=== PATIENT | female | born 1970 | race Caucasian/White ===

== ENCOUNTER 2020-07-20 06:31 | Outpatient (REF) | payer OTHER, SELFPAY ==
[2020-07-20 07:22] LABS: Alanine Aminotransferase 12 U/L (0-31); Albumin Level 3.8 g/dL (3.5-5.0); Alkaline Phosphatase 80 U/L (39-117); Anion Gap 10 (12-20); Aspartate Amino Transferase 10 U/L (5-31); Bilirubin Total 0.4 mg/dL (0.0-1.0); Blood Urea Nitrogen 14 mg/dL (9-16); Calcium 8.8 mg/dL (8.4-10.2); Carbon Dioxide 29 mmol/L (22-29); Chloride 105 mmol/L (96-108); Cholesterol 160 mg/dL; Estimated Glomerular Filt Rate > 60; Glucose Random 160 mg/dL (60-115); HDL Cholesterol 54 mg/dL; LDL Cholesterol Calculated 91 mg/dl; Sodium 140 mmol/L (135-145); Total Protein 6.1 g/dL (6.5-8.0); Triglycerides 75 mg/dL
[2020-07-20 07:37] LABS: Estimated Average Glucose 180 mg/dL; Hemoglobin A1c % 7.9 %
[2020-07-20 09:13] LABS: Creatinine Urine 42.12 mg/dL; Microalbum/Creatinine Ratio Ur 11.8 ug/mg cr
== END 2020-07-20 06:32 | disposition home or self-care (01) ==
LOC: HO.LAB 06:31
PROVIDERS: PCP Internal Medicine; Visit Provider Internal Medicine
DX: E11.9 Type 2 diabetes mellitus without complications (principal)
CPT/HCPCS: 80053; 80061; 82043; 83036

== ENCOUNTER → 2020-10-28 09:03 | Outpatient (BNVA) | payer OTHER, SELFPAY | PROVIDERS: PCP Internal Medicine; Visit Provider Orthopaedic Surgery ==

== ENCOUNTER 2020-10-29 11:04 | Day surgery (SDC) | payer OTHER, SELFPAY ==
[2020-10-29 12:30] VITALS: BMI 25.8
[2020-10-29 12:44] VITALS: BP 147/80; PULSE 95; RESP 18; TEMP 36.9; O2SAT 100
[2020-10-29] MEDS: Lactated Ringers 1,000 ML 20 ML IVCONT (13:15)
--- NOTE | 2020-10-29 13:20 | P.CONAN_ITS ---
FORMERLY [facility] Social History Social History Smoking Status: Current some day smoker Use of substances other than those prescribed or required for medical reasons: No Advance Directives: Yes Advance Directives Information Provided: No Advance Directives on File: No Advance Directives Date on File: 10/29/20 Meds Allergies Allergy/AdvReac Type Severity Reaction Status Date / Time ciprofloxacin [From Cipro] Allergy Mild RASH Unverified 06/17/20 15:53 Iodinated Contrast Media Allergy Mild TACHYCARDIA, Unverified 06/17/20 15:53 [IV Dye, Iodine Containing] RASH povidone-iodine Allergy Mild RASH Unverified 06/17/20 15:53 [From Betadine] bee pollen [BEE STINGS] Allergy Unknown ANAPHYLAXIS Unverified 06/17/20 15:53 dulaglutide [Trulicity] Allergy Unknown Rash Verified 10/29/20 12:29 Shellfish Allergy Mild RASH Uncoded 06/17/20 15:53 Home Medications Medication Instructions Recorded Confirmed Type glimepiride 1 tab PO BID 10/29/20 10/29/20 History imipramine HCl 1 tab PO BID 10/29/20 10/29/20 History insulin glargine [Lantus U-100 30 unit SUBCUT BEDTIME 10/29/20 10/29/20 History Insulin] insulin lispro [Humalog U-100 5 unit SUBCUT TID 10/29/20 10/29/20 History Insulin] lisinopril-hydrochlorothiazide 2 tab PO DAILY 10/29/20 10/29/20 History metformin 1 tab PO BEDTIME 10/29/20 10/29/20 History metoprolol tartrate 1 tab PO BID 10/29/20 10/29/20 History simvastatin 1 tab PO BEDTIME 10/29/20 10/29/20 History Exam Exam Date and Time: October 29, 2020 1320 Height,Weight and Vital Signs: Height 5 ft 6 in Weight 72.575 kg Last Vital Signs Temp 98.4 F 10/29/20 12:44 Pulse 95 10/29/20 12:44 Resp 18 10/29/20 12:44 BP 147/80 H 10/29/20 12:44 Pulse Ox 100 10/29/20 12:44 Airway Mallampati Class: II TM Dist: >3cm Neck ROM: Full Assessment and Plan Assessment Anesthesia Assessment: Anesthesia Plan Discussed and Chart Reviewed Final Anesthetic Review NPO: Yes ASA Class: II Final Preanesthetic Review: No Changes in Pt Med Stat, Meds/Allgs Chart Reviewed, Consent Obtained/Reviewed and Anes Risks/Benef Reviewed Patient Risk: Low Procedure Risk: Low Assessment/Block/Sedation in SS: Assess/Block/Sedation-SS Anesthetic Plan Anesthetic Plan: MAC: Disposition: Standard PACU
--- NOTE | 2020-10-29 13:56 | HO.ANESPROP2 ---
[facility] Social History Social History Smoking Status: Current some day smoker Use of substances other than those prescribed or required for medical reasons: No Advance Directives: Yes Advance Directives Information Provided: No Advance Directives on File: No Advance Directives Date on File: 10/29/20 Meds Allergies Allergy/AdvReac Type Severity Reaction Status Date / Time ciprofloxacin [From Cipro] Allergy Mild RASH Verified 10/29/20 13:23 Iodinated Contrast Media Allergy Mild TACHYCARDIA, Verified 10/29/20 13:23 [IV Dye, Iodine Containing] RASH povidone-iodine Allergy Mild RASH Verified 10/29/20 13:23 [From Betadine] bee pollen [BEE STINGS] Allergy Unknown ANAPHYLAXIS Verified 10/29/20 13:23 dulaglutide [Trulicity] Allergy Unknown Rash Verified 10/29/20 13:23 Shellfish Allergy Mild RASH Uncoded 06/17/20 15:53 Home Medications Medication Instructions Recorded Confirmed Type glimepiride 1 tab PO BID 10/29/20 10/29/20 History imipramine HCl 1 tab PO BID 10/29/20 10/29/20 History insulin glargine [Lantus U-100 30 unit SUBCUT BEDTIME 10/29/20 10/29/20 History Insulin] insulin lispro [Humalog U-100 5 unit SUBCUT TID 10/29/20 10/29/20 History Insulin] lisinopril-hydrochlorothiazide 2 tab PO DAILY 10/29/20 10/29/20 History metformin 1 tab PO BEDTIME 10/29/20 10/29/20 History metoprolol tartrate 1 tab PO BID 10/29/20 10/29/20 History simvastatin 1 tab PO BEDTIME 10/29/20 10/29/20 History Exam Exam Date and Time: October 29, 2020 1356 Height,Weight and Vital Signs: Height 5 ft 6 in Weight 72.575 kg Last Vital Signs Temp 98.4 F 10/29/20 12:44 Pulse 95 10/29/20 12:44 Resp 18 10/29/20 12:44 BP 147/80 H 10/29/20 12:44 Pulse Ox 100 10/29/20 12:44 Airway Mallampati Class: II TM Dist: >3cm Neck ROM: Full Assessment and Plan Assessment Anesthesia Assessment: Anesthesia Plan Discussed and Chart Reviewed Final Anesthetic Review NPO: Yes ASA Class: II Final Preanesthetic Review: No Changes in Pt Med Stat, Meds/Allgs Chart Reviewed, Consent Obtained/Reviewed and Anes Risks/Benef Reviewed Patient Risk: Low Procedure Risk: Low Assessment/Block/Sedation in SS: Assess/Block/Sedation-SS Anesthetic Plan Anesthetic Plan: MAC: Disposition: Standard PACU
[2020-10-29 14:10] VITALS: BP 117/70; PULSE 82; RESP 16; TEMP 36.3; O2SAT 97
--- NOTE | 2020-10-29 14:22 | PM.OP ---
Brief Operative Note Date of Service: 10/29/20 Pre-op diagnosis: right trigger thumb Post-op diagnosis: same Procedure: right trigger thumb release Implants: none Surgeon: Ez Paredes MD Anesthesia: MAC and local Estimated blood loss (mL): 0 Tourniquet time (min): 11 IV fluids (mL): 200 Pathology: none sent Condition: stable Disposition: PACU
[2020-10-29 14:25] VITALS: BP 128/75; PULSE 973; RESP 17; O2SAT 100
--- NOTE | 2020-11-02 15:39 | OP_ITS ---
SURGEON: Ez Paredes MD INDICATIONS: A 50-year-old with a long trigger thumb, consented to undergo trigger thumb release. PREOPERATIVE DIAGNOSIS: Right trigger thumb. POSTOPERATIVE DIAGNOSIS: Right trigger thumb. PROCEDURE PERFORMED: Right trigger thumb release. ESTIMATED BLOOD LOSS: None. COMPLICATIONS: ANESTHESIA: MAC plus local. ASSISTANTS: SPECIMENS: TOURNIQUET TIME: 11 minutes. FLUIDS: 200. PROCEDURE IN DETAIL: The patient was brought to the operative room, placed supine on the hand table and prepped and draped in standard sterile fashion. Time-out was called to identify proper site, proper procedure, and proper surgeon. IV antibiotics per weight were not administered. I began by insufflating tourniquet to 350 mmHg. Then I injected approximately 7 mL of 1% lidocaine over the proximal thumb crease. Longitudinal dissection was taken down to the A1 matthias and this was incised with Littler scissors proximally and distally until the underlying flexor tendon was completely freed. At this point, she had full range of motion of the thumb. I then closed with skin glue and injected an additional 5 mL of 0.25% Marcaine plain. Tourniquet was then let down after sterile dressings were applied. She was awakened from sedation, brought to recovery room in stable condition. There were no known complications. SPOILAGE WORKER: None. MD NAVA Fall/GRIS / [id number]
== END 2020-10-29 14:36 | disposition home or self-care (01) ==
PROVIDERS: PCP Internal Medicine; Visit Provider Orthopaedic Surgery
PROC: (CPT 26055; principal; 2020-10-29 13:00)
DX: M65.311 Trigger thumb, right thumb (principal); F17.210 Nicotine dependence, cigarettes, uncomplicated; E11.9 Type 2 diabetes mellitus without complications; Z79.4 Long term (current) use of insulin; Z79.899 Other long term (current) drug therapy; Z88.1 Allergy status to other antibiotic agents; Z91.041 Radiographic dye allergy status; Z91.09 Other allergy status, other than to drugs and biological substances
CPT/HCPCS: 26055; J2405

== ENCOUNTER 2021-02-16 06:22 | Outpatient (REF) | payer OTHER, SELFPAY ==
[2021-02-16 07:44] LABS: Estimated Average Glucose 169 mg/dL; Hemoglobin A1c % 7.5 %
[2021-02-16 08:06] LABS: Alanine Aminotransferase 16 U/L (0-31); Albumin Level 3.7 g/dL (3.5-5.0); Alkaline Phosphatase 83 U/L (39-117); Anion Gap 10 (12-20); Aspartate Amino Transferase 12 U/L (5-31); Bilirubin Total 0.2 mg/dL (0.0-1.0); Blood Urea Nitrogen 13 mg/dL (9-16); Calcium 8.9 mg/dL (8.4-10.2); Carbon Dioxide 29 mmol/L (22-29); Chloride 105 mmol/L (96-108); Cholesterol 153 mg/dL; Estimated Glomerular Filt Rate > 60; Glucose Random 146 mg/dL (60-115); HDL Cholesterol 53 mg/dL; LDL Cholesterol Calculated 87 mg/dl; Potassium 4.6 mmol/L (3.3-5.1); Sodium 139 mmol/L (135-145); Total Protein 5.9 g/dL (6.5-8.0); Triglycerides 66 mg/dL
[2021-02-16 08:07] LABS: Creatinine Urine 21.99 mg/dL; Microalbum/Creatinine Ratio Ur 22.7 ug/mg cr
== END 2021-02-16 06:23 | disposition home or self-care (01) ==
LOC: HO.LAB 06:22
PROVIDERS: PCP Internal Medicine; Visit Provider Internal Medicine
DX: E11.9 Type 2 diabetes mellitus without complications (principal)
CPT/HCPCS: 36415; 80053; 80061; 82043; 83036

== ENCOUNTER 2021-10-24 06:40 | Outpatient (REF) | payer OTHER, SELFPAY ==
[2021-10-24 07:22] LABS: Estimated Average Glucose 160 mg/dL; Hemoglobin A1c % 7.2 %
[2021-10-24 07:35] LABS: Alanine Aminotransferase 10 U/L (0-31); Alkaline Phosphatase 90 U/L (39-117); Anion Gap 12 (12-20); Aspartate Amino Transferase 12 U/L (5-31); Bilirubin Total 0.4 mg/dL (0.0-1.0); Blood Urea Nitrogen 13 mg/dL (9-16); Calcium 9.4 mg/dL (8.4-10.2); Carbon Dioxide 25 mmol/L (22-29); Chloride 104 mmol/L (96-108); Cholesterol 249 mg/dL; Estimated Glomerular Filt Rate > 60; Glucose Random 142 mg/dL (60-115); HDL Cholesterol 47 mg/dL; LDL Cholesterol Calculated 174 mg/dl; Potassium 4.1 mmol/L (3.3-5.1); Sodium 137 mmol/L (135-145); Total Protein 6.9 g/dL (6.5-8.0); Triglycerides 142 mg/dL
[2021-10-24 09:02] LABS: Creatinine Urine 55.97 mg/dL
== END 2021-10-24 06:41 | disposition home or self-care (01) ==
LOC: HO.LAB 06:40
PROVIDERS: PCP Internal Medicine; Visit Provider Internal Medicine
DX: E11.9 Type 2 diabetes mellitus without complications (principal); E78.5 Hyperlipidemia, unspecified
CPT/HCPCS: 36415; 80053; 80061; 82043; 83036

== ENCOUNTER 2022-05-16 15:09 | Outpatient (REF) | payer OTHER, SELFPAY | END 2022-05-16 15:10 | disposition home or self-care (01) | LOC: HO.HOSX 15:09 | PROVIDERS: Visit Provider Orthopaedic Surgery | DX: Z13.89 Encounter for screening for other disorder (principal) ==

== ENCOUNTER 2022-05-17 07:06 | Outpatient (REF) | payer OTHER, SELFPAY ==
--- NOTE | ~2022-05-17 | XR_ITS ---
EXAMINATION: XR FOOT, LEFT CLINICAL INFORMATION: Residual foreign body in the soft tissues. COMPARISON: None TECHNIQUE: AP, lateral, and oblique views of the left foot. FINDINGS: The bones and soft tissues are normal. No fracture. Alignment is anatomic. Joint spaces are maintained. XR/XR foot LT 2V IMPRESSION: Unremarkable left foot.
== END 2022-05-17 07:07 | disposition home or self-care (01) ==
LOC: HO.XRAY 07:06
PROVIDERS: PCP Internal Medicine; Visit Provider Orthopaedic Surgery
DX: M79.5 Residual foreign body in soft tissue (principal)
CPT/HCPCS: 73620

== ENCOUNTER 2022-05-23 06:29 | Outpatient (REF) | payer OTHER, SELFPAY ==
[2022-05-23 07:59] LABS: Estimated Average Glucose 163 mg/dL; Hemoglobin A1c % 7.3 %
[2022-05-23 08:06] LABS: Creatinine Urine 24.78 mg/dL; Microalbumin Urine < 5.0 mg/L
[2022-05-23 08:09] LABS: Alanine Aminotransferase 14 U/L (0-31); Alkaline Phosphatase 101 U/L (39-117); Anion Gap 14 (12-20); Aspartate Amino Transferase 11 U/L (5-31); Bilirubin Total 0.3 mg/dL (0.0-1.0); Blood Urea Nitrogen 11 mg/dL (9-16); Calcium 9.1 mg/dL (8.4-10.2); Carbon Dioxide 25 mmol/L (22-29); Chloride 105 mmol/L (96-108); Cholesterol 151 mg/dL; Estimated Glomerular Filt Rate > 60; Glucose Random 94 mg/dL (60-115); HDL Cholesterol 53 mg/dL; LDL Cholesterol Calculated 80 mg/dl; Potassium 4.1 mmol/L (3.3-5.1); Sodium 140 mmol/L (135-145); Total Protein 6.5 g/dL (6.5-8.0); Triglycerides 91 mg/dL
== END 2022-05-23 06:30 | disposition home or self-care (01) ==
LOC: HO.LAB 06:29
PROVIDERS: PCP Internal Medicine; Visit Provider Internal Medicine
DX: E11.9 Type 2 diabetes mellitus without complications (principal); E78.5 Hyperlipidemia, unspecified
CPT/HCPCS: 36415; 80053; 80061; 82043; 83036

== ENCOUNTER 2022-05-31 13:31 | Outpatient (REF) | payer OTHER, SELFPAY ==
--- NOTE | ~2022-05-31 | MM_ITS ---
EXAMINATION: MM SCREENING DIGITAL BREAST TOMOSYNTHESIS, BILATERAL CLINICAL INFORMATION: Screening. Asymptomatic. The lifetime risk of breast cancer based on the Tyrer-Cuzick Model is 10%. COMPARISON: Mammography: 07/25/2019, 07/03/2016 TECHNIQUE: Digital breast tomosynthesis is performed in both the craniocaudal and mediolateral oblique views along with computer-aided detection (CAD). Synthesized 2D images are generated from the tomosynthesis. FINDINGS: The breasts are heterogeneously dense, which may obscure small masses (ACR BI-RADS breast composition Category c). There are no significant masses, abnormal calcifications, or other abnormalities. Parenchymal pattern is similar to prior studies. There is no developing density or architectural abnormality. The axilla and skin contours are unremarkable. No significant changes. MM/MM tomosynthesis screening BI IMPRESSION: No mammographic evidence of malignancy. ASSESSMENT: BI-RADS 1: Negative RECOMMENDATION: Routine annual mammography screening. This patient's information was entered into a reminder system with a target due date for their next mammogram.
== END 2022-05-31 13:32 | disposition home or self-care (01) ==
LOC: HO.MAMMO 13:31
PROVIDERS: PCP Internal Medicine; Visit Provider Internal Medicine
DX: Z12.31 Encounter for screening mammogram for malignant neoplasm of breast (principal)
CPT/HCPCS: 77063; 77067

== ENCOUNTER 2022-11-23 06:27 | Outpatient (REF) | payer OTHER, SELFPAY ==
[2022-11-23 06:38] LABS: MANUAL DIFF FLAG NO
[2022-11-23 07:34] LABS: Basophils Absolute Auto 0.1 X10*3/uL (0.0-0.2); Basophils Percent Auto 0.5 % (0-2); Eosinophils Absolute Auto 0.2 X10*3/uL (0.0-0.4); Eosinophils Percent Auto 2.4 % (0-4); Hematocrit 39.7 % (37.0-47.0); Hemoglobin 13.7 g/dl (12.0-16.0); Imm Gran Abs Auto 0.03 X10*3/uL (0.00-0.03); Imm Gran Pct Auto 0.3 % (0.0-0.4); Lymphocytes Absolute Auto 2.8 X10*3/uL (1.2-4.9); Lymphocytes Percent Auto 30.5 % (20-40); Mean Corpuscular HGB Conc 34.5 g/dl (31.0-35.0); Mean Corpuscular Hemoglobin 32.1 pg (27.0-33.0); Mean Platelet Volume 9.7 fL (9.4-12.3); Monocytes Absolute Auto 0.6 X10*3/uL (0.1-1.2); Monocytes Percent Auto 6.9 % (2-11); Neutrophils Absolute Auto 5.4 x10*3/uL (2.0-8.3); Neutrophils Percent Auto 59.4 % (45-73); Platelet Count 342 X10*3/uL (160-400); Red Blood Count 4.27 X10*6/uL (4.20-5.50); Red Cell Distribution Width 12.1 % (11.0-16.0); White Blood Count 9.2 X10*3/uL (4.8-10.8)
[2022-11-23 08:01] LABS: Anion Gap 15 (12-20); Blood Urea Nitrogen 14 mg/dL (9-16); Calcium 9.2 mg/dL (8.4-10.2); Carbon Dioxide 24 mmol/L (22-29); Chloride 104 mmol/L (96-108); Estimated Average Glucose 166 mg/dL; Estimated Glomerular Filt Rate > 60; Glucose Random 223 mg/dL (60-115); Hemoglobin A1c % 7.4 %; Potassium 4.5 mmol/L (3.3-5.1); Sodium 138 mmol/L (135-145)
== END 2022-11-23 06:28 | disposition home or self-care (01) ==
LOC: HO.LAB 06:27
PROVIDERS: PCP Internal Medicine; Visit Provider Nurse Practitioner Family
DX: Z01.818 Encounter for other preprocedural examination (principal)
CPT/HCPCS: 36415; 80048; 83036; 85025

== ENCOUNTER 2022-12-14 06:20 | Day surgery (SDC) | payer OTHER, SELFPAY ==
[2022-12-08 11:52] VITALS: BMI 29.8
--- NOTE | 2022-12-13 10:29 | P.CONAN_ITS ---
Documented by User: Viola Jo NP 12/13/22 12:13 HPI - Anesthesia Eval Consult details Narrative: 52yo F for Left Total 5th Metatarsal Head Resection, Right Resection of bone Right 4th toe PCP cleared [facility] Active Problems Active Problems: All Active Problems (Updated 12/08/22 @ 11:10 by Selin Espinal, RN) Foreign body (FB) in soft tissue (Acute) Past Medical History Medical History Diabetes HTN (hypertension) Hyperlipidemia On beta conrado at home Surgical History Surgical History History of elbow surgery History of hand surgery Hx of breast surgery Hx of hammer toe correction Social History Social History (System 10/24/21 @ 07:13 by Kamryn Parry) Are you a primary personal care aide to a significant other at home: No Do you presently have visiting nurse or other home services: No Alcohol intake: never Patient Tobacco Use Status: Current everyday Tobacco user Tobacco use type: Smokeless Tobacco Cigarettes Per Day: 4 Years Smoked: 30 Smoked in Last 30 Days: Yes Use of substances other than those prescribed or required for medical reasons: No Have you been hit, kicked, punched, or otherwise hurt by someone within the past year? If so, by whom?: No Are you DNR?: No Advance Directives: Yes Advance Directives Information Provided: No Advance Directives on File: Yes Advance Directives Date on File: 10/29/20 Recently lost weight without trying: No Eating poorly because of decreased appetite: No Nutrition Risks: No Nutritional Risk Patient : No Current occupational status: employed Current occupation: clinical surgical services director- right handed Meds Allergies Allergy/AdvReac Type Severity Reaction Status Date / Time ciprofloxacin [From Cipro] Allergy Mild RASH Verified 12/08/22 11:52 Iodinated Contrast Media Allergy Mild TACHYCARDIA, Verified 12/08/22 11:52 [IV Dye, Iodine Containing] RASH iodine Allergy Mild Rash Verified 12/08/22 11:52 povidone-iodine Allergy Mild RASH Verified 12/08/22 11:52 [From Betadine] soap [From Betadine] Allergy Mild Rash Verified 12/08/22 11:52 bee pollen [BEE STINGS] Allergy Unknown ANAPHYLAXIS Verified 12/08/22 11:52 dulaglutide [Trulicity] Allergy Unknown Rash Verified 12/08/22 11:52 Shellfish Allergy Mild RASH Uncoded 12/08/22 11:52 Home Medications Medication Instructions Recorded Confirmed Last Taken Type metformin 500 mg tablet 500 mg PO BID 10/28/20 12/08/22 12/13/22 History glimepiride 4 mg tablet 1 tab PO BID 10/29/20 12/08/22 12/13/22 History imipramine HCl 10 mg tablet 1 tab PO BID 10/29/20 12/08/22 12/13/22 History insulin glargine 100 unit/mL 30 unit subcut BEDTIME 10/29/20 12/08/22 12/13/22 History subcutaneous solution (Lantus U-100 Insulin) insulin lispro 100 unit/mL 5 unit subcut TID 10/29/20 12/08/22 12/13/22 History subcutaneous solution (Humalog U-100 Insulin) lisinopril 20 1 tab PO DAILY 10/29/20 12/08/22 12/13/22 History mg-hydrochlorothiazide 12.5 mg tablet metoprolol tartrate 100 mg tablet 0.5 tab PO BID 10/29/20 12/08/22 12/14/22 History simvastatin 20 mg tablet 1 tab PO BEDTIME 10/29/20 12/08/22 12/13/22 History cetirizine 10 mg tablet (Zyrtec) 10 mg PO DAILY PRN Allergy Symptoms 12/08/22 12/08/22 12/13/22 History cholecalciferol (vitamin D3) 25 25 mcg PO DAILY 12/08/22 12/08/22 12/13/22 History mcg (1,000 unit) capsule (Vitamin D3) Exam Exam Date and Time: December 13, 2022 1029 Height,Weight and Vital Signs: Height 5 ft 6 in Weight 83.915 kg Pertinent Lab Results Pertinent Lab Results: Laboratory Tests 11/23/22 11/23/22 06:34 06:34 WBC 9.2 Hgb 13.7 Hct 39.7 Plt Count 342 Sodium 138 Potassium 4.5 Chloride 104 Carbon Dioxide 24 BUN 14 Creatinine 0.79 Assessment and Plan Assessment Anesthesia Assessment: Chart Reviewed Documented by User: Fabiola Salvador MD 12/14/22 08:37 [facility] Past Medical History Medical History Diabetes HTN (hypertension) Hyperlipidemia On beta conrado at home Family History Family history of problems with anesthesia: No Surgical History Surgical History History of elbow surgery History of hand surgery Hx of breast surgery Hx of hammer toe correction History of Problems with Anesthesia: No Social History Social History (System 10/24/21 @ 07:13 by Kamryn Parry) Are you a primary personal care aide to a significant other at home: No Do you presently have visiting nurse or other home services: No Alcohol intake: never Patient Tobacco Use Status: Current everyday Tobacco user Tobacco use type: Smokeless Tobacco Cigarettes Per Day: 4 Years Smoked: 30 Smoked in Last 30 Days: Yes Use of substances other than those prescribed or required for medical reasons: No Have you been hit, kicked, punched, or otherwise hurt by someone within the past year? If so, by whom?: No Are you DNR?: No Advance Directives: Yes Advance Directives Information Provided: No Advance Directives on File: Yes Advance Directives Date on File: 10/29/20 Recently lost weight without trying: No Eating poorly because of decreased appetite: No Nutrition Risks: No Nutritional Risk Patient : No Current occupational status: employed Current occupation: clinical surgical services director- right handed Meds Allergies Allergy/AdvReac Type Severity Reaction Status Date / Time ciprofloxacin [From Cipro] Allergy Mild RASH Verified 12/08/22 11:52 Iodinated Contrast Media Allergy Mild TACHYCARDIA, Verified 12/08/22 11:52 [IV Dye, Iodine Containing] RASH iodine Allergy Mild Rash Verified 12/08/22 11:52 povidone-iodine Allergy Mild RASH Verified 12/08/22 11:52 [From Betadine] soap [From Betadine] Allergy Mild Rash Verified 12/08/22 11:52 bee pollen [BEE STINGS] Allergy Unknown ANAPHYLAXIS Verified 12/08/22 11:52 dulaglutide [Trulicity] Allergy Unknown Rash Verified 12/08/22 11:52 Shellfish Allergy Mild RASH Uncoded 12/08/22 11:52 Home Medications Medication Instructions Recorded Confirmed Last Taken Type metformin 500 mg tablet 500 mg PO BID 10/28/20 12/08/22 12/13/22 History glimepiride 4 mg tablet 1 tab PO BID 10/29/20 12/08/22 12/13/22 History imipramine HCl 10 mg tablet 1 tab PO BID 10/29/20 12/08/22 12/13/22 History insulin glargine 100 unit/mL 30 unit subcut BEDTIME 10/29/20 12/08/22 12/13/22 History subcutaneous solution (Lantus U-100 Insulin) insulin lispro 100 unit/mL 5 unit subcut TID 10/29/20 12/08/22 12/13/22 History subcutaneous solution (Humalog U-100 Insulin) lisinopril 20 1 tab PO DAILY 10/29/20 12/08/22 12/13/22 History mg-hydrochlorothiazide 12.5 mg tablet metoprolol tartrate 100 mg tablet 0.5 tab PO BID 10/29/20 12/08/22 12/14/22 History simvastatin 20 mg tablet 1 tab PO BEDTIME 10/29/20 12/08/22 12/13/22 History cetirizine 10 mg tablet (Zyrtec) 10 mg PO DAILY PRN Allergy Symptoms 12/08/22 12/08/22 12/13/22 History cholecalciferol (vitamin D3) 25 25 mcg PO DAILY 12/08/22 12/08/22 12/13/22 History mcg (1,000 unit) capsule (Vitamin D3) Exam Height,Weight and Vital Signs: Height 5 ft 6 in Weight 83.915 kg Vital Signs Temp Pulse Resp BP Pulse Ox O2 Del Method 12/14/22 06:23 96.9 F 79 18 140/84 H 97 Room Air Airway Mallampati Class: II TM Dist: >3cm Neck ROM: Full Loose/Missing/Broken Teeth: No (Denies broken, loose, missing teeth) Heart: RRR Lungs: CTAB Assessment and Plan Assessment Anesthesia Assessment: Anesthesia Plan Discussed Final Anesthetic Review Family History of Problems with Anesthesia: No History of Problems with Anesthesia: No NPO: Yes ASA Class: II Final Preanesthetic Review: No Changes in Pt Med Stat, Meds/Allgs Chart Reviewed, Consent Obtained/Reviewed and Anes Risks/Benef Reviewed Patient Risk: Low Procedure Risk: Low Assessment/Block/Sedation in SS: Assess/Block/Sedation-SS Anesthetic Plan Anesthetic Plan: MAC: Disposition: Standard PACU
--- NOTE | 2022-12-13 13:48 | HP_ITS ---
DATE OF SERVICE: 12/14/2022 PREOPERATIVE DIAGNOSES: 1. Hypertrophy of bone, right 4th toe. 2. Tailor's bunion, left foot. PLANNED PROCEDURES: 1. Excision of hypertrophic bone, right 4th toe. 2. Total metatarsal head excision, 5th metatarsal, left foot. PAST MEDICAL HISTORY: Measles, high blood pressure, type 2 diabetes. CURRENT MEDICATIONS: Humalog, imipramine, Januvia, simvastatin, metformin, metoprolol, glimepiride, lisinopril, Ecotrin, and vitamin D. SURGICAL HISTORY: Breast biopsy, multiple foot surgeries. FAMILY HISTORY: Diabetes. SOCIAL HISTORY: The patient is a current smoker. Denies any illicit drug use or alcohol use. She is currently an employee at [employer]. ALLERGIES: TO CIPRO, LEVAQUIN, IODINE, SHRIMP, AND SHELLFISH. HOSPITALIZATIONS: Denies. REVIEW OF SYSTEMS: Within normal limits. HISTORY OF PRESENT ILLNESS: This is a 52-year-old female, who presents to my office as a long-time patient of [facility]. She had a partial 4th toe amputation several years ago and has some hypertrophic bone at the end of her 4th digit, that has been causing a callus and burning sensation in the toe. She has tried multiple conservative therapies including offloading padding, debridement, and diabetic shoes without any relief of symptoms. The patient also complains of pain underlying the 5th metatarsal head of the left foot and it has been gradually getting progressively worse. She has also tried change in shoes, inner soles, and diabetic inserts with shoes. LABORATORY DATA: Hemoglobin A1c is 7.2. PHYSICAL EXAMINATION: GENERAL: Reveals a pleasant, well-nourished, well-developed, well-hydrated individual, who demonstrates proper attention to body habitus. She is in no acute distress. She is oriented x3. NEUROLOGICAL EXAM: Reveals reduced light touch sensation, reduced sharp and dull sensation, pinprick sensation is reduced, proprioception is reduced, and the monofilament testing is absent to the plantar forefoot. The patient relates burning, tingling, and neuropathy in both feet. VASCULAR EXAM: DP and PT pulses are 3/4 bilaterally. Capillary refill is immediate to all digits. Skin temperature, elasticity, and turgor are normal, and there is no edema. DERMATOLOGICAL EXAM: Reveals a keratotic lesion to the plantar aspect of the right 4th toe as well as under the 5th metatarsal heads, most significantly on the left foot. ORTHOPEDIC EXAM: Reveals muscle strength is 5/5 in a symmetrical fashion. There is a tailor's bunion to the left foot with a prominent painful inflamed 5th metatarsal head MPJ, most significantly on the left foot. There are also digital deformities. There are partial amputations of both 4th digits bilaterally and pain on palpation to the distal remaining digits of the right 4th toe. X-RAY EXAM: Reveals mild generalized decrease in bone density, hypertrophy of the 5th metatarsal head of the left foot as a marker area of pain. There also shows enlarged hypertrophied proximal phalanx head of the 4th digit of the right foot and area of marked skin lesion. PLAN: Surgical procedures to treat the patient's foot problems were discussed in detail, reviewed the risks of the procedure versus not having this procedure, the potential surgical complications, the usual postoperative course. We discussed the potential surgical complications including, but not limited to, pain, swelling, bleeding, scarring, numbness, infection, delayed or nonhealing, floppy, unstable or shortened toe recurrence, failure of the procedure, over-correction leaded to downward or upward position of toe, recurrence, need for further surgery, as well as possibility of loss of toe, foot, life, or limb. No guarantees were given. We discussed the use of local and IV anesthesia and the usual postoperative course for healing. The patient verbally indicated a full understanding of the above-mentioned conversation and any other questions were answered to her satisfaction. So, the patient has had multiple foot procedures in the past with no postoperative complications or issues that she relates and she states she has significant time off work to recover, therefore, I did discuss performing surgery on both her right 4th toe as well as her left 5th or tailor's bunion. The patient is aware of the difficulty of performing bilateral foot surgery, but does not want to do them on separate dates, and we will proceed with bilateral foot surgery as discussed. We discussed performing a total 5th metatarsal head excision on the left foot and resection of hypertrophic bone on the 4th toe of the right foot; inside the left foot is the tailor's bunion and the right is the 4th toe. We decided to do these procedures based on the patient's complaints, medical and social history, physical exam, x-ray analysis, and living conditions. The patient would like to proceed was proposed surgical treatment. She will obtain preoperative labs as well as medical clearance for surgery and anesthesia. She is made aware to stop any and all blood thinners at least 1 week prior to surgery and has made aware of the fact that driving is not allowed during a portion of the postoperative period. Discussed decreasing smoking or quitting smoking to minister helper in the postoperative recovery. The patient is aware of the risk factors of smoking and healing of podiatric surgery. Narcotic pain medications were deferred by the patient. I did recommend she stagger taking extra-strength Tylenol and Motrin as needed for discomfort. She will be weightbearing as tolerated in bilateral surgical shoes and she will follow up in my office for all postoperative followup care. Cristina Garcia DPM LP/GRIS / [id number]
[2022-12-14 06:23] VITALS: BP 140/84; PULSE 79; RESP 18; TEMP 36.1; O2SAT 97
[2022-12-14 06:33] LABS: Glucose, Whole Blood 106 mg/dL (60-115)
[2022-12-14] MEDS: Lactated Ringers 1,000 ML 100 ML IVCONT (06:48)
[2022-12-14 07:18] LABS: Glucose, Whole Blood 107 mg/dL (60-115)
--- NOTE | 2022-12-14 07:45 | MHC.SHP ---
Pre-Procedural Eval Section A Date of Service: 12/14/22 The patient is an INPATIENT: No Changes since office visit: No Cold of Flu in the past 2 weeks, No New Medical Problems, No Changes in Medication and No Patient answered all questions The History & Physical has been completed within 30 days and I have reviewed it.: Yes Section B Chief Complaint: Bunionette of left foot,Hypertrophy of bone, right Allergies: Allergies Allergy/AdvReac Type Severity Reaction Status Date / Time ciprofloxacin [From Cipro] Allergy Mild RASH Verified 12/08/22 11:52 Iodinated Contrast Media Allergy Mild TACHYCARDIA, Verified 12/08/22 11:52 [IV Dye, Iodine Containing] RASH iodine Allergy Mild Rash Verified 12/08/22 11:52 povidone-iodine Allergy Mild RASH Verified 12/08/22 11:52 [From Betadine] soap [From Betadine] Allergy Mild Rash Verified 12/08/22 11:52 bee pollen [BEE STINGS] Allergy Unknown ANAPHYLAXIS Verified 12/08/22 11:52 dulaglutide [Trulicity] Allergy Unknown Rash Verified 12/08/22 11:52 Shellfish Allergy Mild RASH Uncoded 12/08/22 11:52 Plan I have reviewed the history and physical and performed a pertinent physical examination on my patient. No changes have occurred unless specified. Time Spent With Patient Time: Total time managing care of this patient today ____ minutes.
--- NOTE | 2022-12-14 08:24 | PM.OP ---
Brief Operative Note Date of Service: 12/14/22 Pre-op diagnosis: Right hypertrophy of bone 4th toe and Left Tailors bunion Post-op diagnosis: same Procedure: Right excision of hypertrophic bone 4th toe and Left total excision of 5th metatarsal head Implants: None Surgeon: Cristina Garcia Anesthesia: MAC and local Was an Branch Service Leader used for this Procedure?: Yes Branch Service Leader: Ramy Hinojosa Estimated blood loss (mL): 1 Tourniquet time (min): 10 Pathology: other Condition: stable Disposition: PACU
[2022-12-14 08:28] VITALS: BP 127/71; PULSE 81; RESP 20; TEMP 36.6; O2SAT 94
[2022-12-14 08:43] VITALS: BP 117/65; PULSE 79; RESP 16; TEMP 36.6; O2SAT 96
[2022-12-14 08:58] VITALS: BP 147/91; PULSE 81; RESP 16; TEMP 36.6; O2SAT 97
--- NOTE | 2022-12-14 10:34 | OP_ITS ---
SURGEON: Cristina Garcia DPM PREOPERATIVE DIAGNOSES: 1. Tailor bunion, left foot. 2. Hypertrophic bone, right 4th toe. POSTOPERATIVE DIAGNOSES: 1. Tailor bunion, left foot. 2. Hypertrophic bone, right 4th toe PROCEDURE PERFORMED: 1. Total excision of 5th metatarsal head, left foot. 2. Excision of hypertrophic bone, right 4th toe. ESTIMATED BLOOD LOSS: Less than 1 cc. COMPLICATIONS: None. ANESTHESIA: Monitored anesthetic care with local consisting preoperatively of 12 cc of 0.5% Rupivicaine plain and 2% lidocaine plain, 6 cc to each foot and then postoperatively 5 cc total to both feet of 0.5% Rupivicaine plain. ASSISTANTS: Ramy Hinojosa DPM HEMOSTASIS: For the right foot was 6 minutes at 240 mmHg and the left foot 10 minutes at 240 mmHg. SPECIMEN: Bone left 5th metatarsal head and right 4th toe. INDICATION FOR SURGERY: Patient had painful skin lesions noted to the plantar aspect of the left 5th metatarsal head and tailor bunion as well as hypertrophic bone at the distal aspect of the right 4th toe at previous amputation site causing painful skin lesion. The above-mentioned surgeries discussed in detail with the patient including risks, benefits, and possible complications. No guarantees were given and the written and oral informed consent was obtained. PROCEDURE IN DETAIL: Patient was brought into the operating room, placed on the operating table in the supine position. Following IV sedation and administration of 2 g of cefazolin as a prophylactic preoperative antibiotic, both feet were anesthetized with 12 cc total, 6 cc to each foot of 0.5% Rupivicaine plain and 2% lidocaine plain. Both feet were then scrubbed, prepped, and draped in a sterile manner. Attention was directed first to the right foot, which was exsanguinated, and the pneumatic ankle tourniquet was inflated and then attention was directed to the dorsal aspect of the 4th toe. It should be noted that she had partial amputation of the 4th toe in the past. Incision was made about 1 cm in length overlying the distal aspect of the 4th toe. The incision was deepened down through subcutaneous tissue. Great care being taken to retract vital, neural, and vascular structures, and all bleeders were cauterized as necessary. The soft tissues were freed about the distal aspect of the remaining 4th digit and a small section of the distal aspect of the 4th digit was resected and passed from the operative site and sent for Pathology. There was noted to be a keratotic lesion on the plantar lateral aspect of the distal toe. Upon resection of the distal aspect of the bone, there was no bony protrusion at the area of the keratosis. The wound was then irrigated with normal sterile saline. The deep structures were reapproximated with 3-0 Vicryl in an interrupted suture technique, and the skin was reapproximated with 4-0 nylon in a continuous running fashion. A postoperative injection of 2 cc of 0.5% Rupivicaine plain was administered and then the toe was dressed with Xeroform, 4x4s, fluffs, Kerlix, cast padding, and an Bull bandage, and pneumatic ankle tourniquet was deflated and prompt capillary refill was noted to all 5 digits. Attention was then directed to the left foot, which was exsanguinated and pneumatic ankle tourniquet was inflated to 240 mmHg. Attention was then directed to the dorsal aspect of the 5th metatarsal head. An incision was made approximately 2.5 cm in length. The incision was deepened down through subcutaneous tissue with great care being taken to retract vital, neural, and vascular structures and all bleeders were cauterized as necessary. A capsulotomy was made lateral and parallel to the extensor tendons and the soft tissues were freed about the head of the 5th metatarsal. A McGlamry elevator was introduced to free up any adhesions and then using the sagittal saw, the head of the 5th metatarsal was resected and passed from the operative site. The bone was then sent for pathology. The wound was then irrigated with normal sterile saline. The capsular and deep structures were reapproximated with 3-0 Vicryl in a continuous running fashion, and the skin was reapproximated with 4-0 nylon in a continuous running fashion. The postoperative injection of 3 cc of 0.5% Rupivicaine plain was administered and then the foot was dressed with Xeroform, 4x4s, fluffs, Kerlix, cast padding, and an Bull bandage. Pneumatic ankle tourniquet was deflated after 10 minutes and prompt capillary refill was noted to all 5 digits. The patient tolerated procedure and anesthesia well. She was transferred to recovery room with vital signs stable and vascular status at preoperative levels. Following a period of postoperative recovery, the patient will be discharged home with written and oral postoperative instructions she is to be weightbearing as tolerated to both feet with surgical shoes and can use crutches for stability. The patient will follow up in my office for all postoperative followup care. Cristina Garcia DPM LP/GRIS / [id number] MTDD
== END 2022-12-14 09:23 | disposition home or self-care (01) ==
PROVIDERS: PCP Internal Medicine; Visit Provider Podiatrist
PROC: (CPT 28113; principal; 2022-12-14 07:30)
PROC: (CPT 28113; 2022-12-14 07:30)
DX: M21.622 Bunionette of left foot (principal); M89.371 Hypertrophy of bone, right ankle and foot; I10 Essential (primary) hypertension; E78.5 Hyperlipidemia, unspecified; E11.9 Type 2 diabetes mellitus without complications; Z79.4 Long term (current) use of insulin; Z79.899 Other long term (current) drug therapy; Z88.1 Allergy status to other antibiotic agents; Z88.8 Allergy status to other drugs, medicaments and biological substances; Z91.041 Radiographic dye allergy status; F17.210 Nicotine dependence, cigarettes, uncomplicated
CPT/HCPCS: 28113; 28124; 82947; 88304; 88311; J0690; J1100; J2250; J2405; J2795; J3010

== ENCOUNTER 2022-12-22 06:29 | Outpatient (REF) | payer OTHER, SELFPAY ==
[2022-12-22 07:46] LABS: Estimated Average Glucose 163 mg/dL; Hemoglobin A1c % 7.3 %
[2022-12-22 07:59] LABS: Alanine Aminotransferase 11 U/L (0-31); Albumin Level 3.9 g/dL (3.5-5.0); Alkaline Phosphatase 86 U/L (39-117); Anion Gap 13 (12-20); Aspartate Amino Transferase 11 U/L (5-31); Bilirubin Total 0.4 mg/dL (0.0-1.0); Blood Urea Nitrogen 13 mg/dL (9-16); Calcium 9.2 mg/dL (8.4-10.2); Carbon Dioxide 26 mmol/L (22-29); Chloride 106 mmol/L (96-108); Cholesterol 172 mg/dL; Estimated Glomerular Filt Rate > 60; Glucose Random 163 mg/dL (60-115); HDL Cholesterol 49 mg/dL; LDL Cholesterol Calculated 103 mg/dl; Potassium 4.5 mmol/L (3.3-5.1); Sodium 140 mmol/L (135-145); Total Protein 6.2 g/dL (6.5-8.0); Triglycerides 104 mg/dL
== END 2022-12-22 06:30 | disposition home or self-care (01) ==
LOC: HO.LAB 06:29
PROVIDERS: PCP Internal Medicine; Visit Provider Internal Medicine
DX: E11.9 Type 2 diabetes mellitus without complications (principal); E78.5 Hyperlipidemia, unspecified
CPT/HCPCS: 36415; 80053; 80061; 83036

== ENCOUNTER 2023-09-10 07:24 | Outpatient (REF) | payer OTHER, SELFPAY ==
--- NOTE | ~2023-09-10 | XR_ITS ---
EXAMINATION: XR ANKLE, LEFT XR FOOT, LEFT CLINICAL INFORMATION: Pain COMPARISON: None available. TECHNIQUE: 3 views of the left foot 3 views the left ankle FINDINGS: Reabsorption along the head of the fifth metatarsal and fourth distal phalangeal tuft versus congenital variant, chronicity indeterminate. No acute visible fracture or dislocation. Ankle mortise is symmetric. Joint space alignment are otherwise maintained. Soft tissues are unremarkable. XR/XR ankle LT min 3V IMPRESSION: 1. Reabsorption along the head of the fifth metatarsal and fourth distal phalangeal tuft versus congenital variant, chronicity indeterminate. 2. No acute visible fracture or dislocation.
--- NOTE | ~2023-09-10 | XR_ITS ---
EXAMINATION: XR ANKLE, LEFT XR FOOT, LEFT CLINICAL INFORMATION: Pain COMPARISON: None available. TECHNIQUE: 3 views of the left foot 3 views the left ankle FINDINGS: Reabsorption along the head of the fifth metatarsal and fourth distal phalangeal tuft versus congenital variant, chronicity indeterminate. No acute visible fracture or dislocation. Ankle mortise is symmetric. Joint space alignment are otherwise maintained. Soft tissues are unremarkable. XR/XR foot LT min 3V IMPRESSION: 1. Reabsorption along the head of the fifth metatarsal and fourth distal phalangeal tuft versus congenital variant, chronicity indeterminate. 2. No acute visible fracture or dislocation.
== END 2023-09-10 07:25 | disposition home or self-care (01) ==
LOC: HO.XRAY 07:24
PROVIDERS: PCP Internal Medicine; Visit Provider Physician Assistant
DX: M79.672 Pain in left foot (principal); M25.572 Pain in left ankle and joints of left foot
CPT/HCPCS: 73610; 73630

== ENCOUNTER 2023-10-22 06:22 | Outpatient (REF) | payer OTHER, SELFPAY ==
[2023-10-22 07:28] LABS: Alanine Aminotransferase 15 U/L (0-31); Alkaline Phosphatase 107 U/L (39-117); Anion Gap 12 (12-20); Aspartate Amino Transferase 12 U/L (5-31); Bilirubin Total 0.3 mg/dL (0.0-1.0); Blood Urea Nitrogen 12 mg/dL (9-16); Calcium 9.7 mg/dL (8.4-10.2); Carbon Dioxide 26 mmol/L (22-29); Chloride 104 mmol/L (96-108); Cholesterol 173 mg/dL (<200); Estimated Glomerular Filt Rate > 60; Glucose Random 166 mg/dL (60-115); HDL Cholesterol 47 mg/dL (>40); LDL Cholesterol Calculated 101 mg/dL (<100); Potassium 4.3 mmol/L (3.3-5.1); Sodium 138 mmol/L (135-145); Total Protein 7.1 g/dL (6.5-8.0); Triglycerides 127 mg/dL (<150)
[2023-10-22 08:08] LABS: Estimated Average Glucose 148 mg/dL; Hemoglobin A1c % 6.8 % (<6.0)
== END 2023-10-22 06:23 | disposition home or self-care (01) ==
LOC: HO.LAB 06:22
PROVIDERS: PCP Internal Medicine; Visit Provider Internal Medicine
DX: E11.9 Type 2 diabetes mellitus without complications (principal); E78.5 Hyperlipidemia, unspecified
CPT/HCPCS: 36415; 80053; 80061; 83036

== ENCOUNTER 2024-06-23 07:00 | Outpatient (REF) | payer OTHER, SELFPAY ==
[2024-06-23 08:01] LABS: Estimated Average Glucose 148 mg/dL; Hemoglobin A1c % 6.8 % (<6.0)
[2024-06-23 08:13] LABS: Alanine Aminotransferase 19 U/L (0-31); Alkaline Phosphatase 116 U/L (39-117); Anion Gap 13 (12-20); Aspartate Amino Transferase 13 U/L (5-31); Bilirubin Total 0.3 mg/dL (0.0-1.0); Blood Urea Nitrogen 12 mg/dL (9-16); Calcium 9.5 mg/dL (8.4-10.2); Carbon Dioxide 26 mmol/L (22-29); Chloride 106 mmol/L (96-108); Cholesterol 181 mg/dL (<200); Estimated Glomerular Filt Rate > 60; Glucose Random 129 mg/dL (60-115); HDL Cholesterol 49 mg/dL (>40); LDL Cholesterol Calculated 107 mg/dL (<100); Potassium 3.8 mmol/L (3.3-5.1); Sodium 141 mmol/L (135-145); Total Protein 6.9 g/dL (6.5-8.0); Triglycerides 126 mg/dL (<150)
[2024-06-23 08:20] LABS: Microalbumin Urine < 5.0 mg/L
== END 2024-06-23 07:01 | disposition home or self-care (01) ==
LOC: HO.LAB 07:00
PROVIDERS: PCP Internal Medicine; Visit Provider Internal Medicine
DX: E11.9 Type 2 diabetes mellitus without complications (principal); E78.5 Hyperlipidemia, unspecified
CPT/HCPCS: 36415; 80053; 80061; 82043; 82570; 83036

== ENCOUNTER 2025-02-03 15:12 | Outpatient (REF) | payer OTHER, SELFPAY ==
--- OUTSIDE RECORDS SUMMARY | 2025-02-03 16:22 | XMS_ITS ---
Author Organization [facility] Address [address] [place] [address] Care Team Providers Care Metal Cut Off Saw Operator Name Role Phone Margaret CACERES, Pavel Primary Care Provider Cristina Boone [phone] Encounters Encounter Location Date Provider Diagnosis [address] [address] 12/30/2024 Cristina Garcia Plan Of Treatment No Information Progress Notes * Christie ESCOBEDOh ADOB:1969 (54 yo F)Acc No.[id number]:12/30/2024 Progress Note Patient:?Aubrie ESCOBEDO Provider:?Cristina Garcia DPM :1970???Age:54 Y???Sex:Female D ate:12/30/2024 Address:[address] [place], [place] [id number] Pcp:Pvael Robles MD Subjective: * Chief Complaints: * ??? * Medical History:? Objective: * Vitals:? Assessment: Plan: * Treatment: * Images: * The named appointment provid er may or may not be the originator of this progress note, and it is not deemed complete until electronically signed by the appointment provider. Sign off status: Pending * Provider:?Cristina Garcia DPM Date:?10/2024 Generated for Printi ng/Faxing/eTransmitting on:?02/03/2025 04:22 PM EDT
--- OUTSIDE RECORDS SUMMARY | 2025-02-03 16:22 | XMS_ITS | Patient Health Record ---
Author Organization [facility] Address [address] [place] [address] Care Team Providers Care Space Controller Name Role Phone Pavel Robles MD Primary Care Provider Cristina Boone Unavailable [phone] Allergies Allergen (clinical drug ingredient) Drug/Non Drug Allergy documented on EMR Reaction Allergy Type Onset Date Status ciprofloxacin Cipro rash Drug Allergy Act elly Iodine rash/blisters Drug Allergy Act elly Levaquin rash Drug Allergy Active shrimp allergenic extract Shrimp (Diagnostic) hives Drug Allergy Active Shellfish (FN) Shellfish-derived Products Hives Drug Allergy Active Reason For Referral No Information Medications Medication SIG (Take, Route, Frequency, Duration) Notes Start Date End Date Status HumaLOG Active Ecotrin Low Strength 81 MG 1 tablet Orally Once a day Active Lisinopril 20 MG 1 tablet Orally Once a day Active Lantus 100 UNIT/ML Subcutaneous Active Vitamin D-3 5000 UNIT Orally Active metFORMIN HCl 500 MG 1 tablet with meals Orally Twice a day Active Simvastatin 20 MG 1 tablet in the even ing Orally Once a day Active Glimepiride 4 MG 1 tablet with breakf ast or the first main meal of the day Orally Once a day Active Metoprolol Tartrate 100 MG 1 tablet Orally Once a day Active Custom Orthotics as directed N ot-Taking Januvia 100 MG 1 tablet Orally Once a day Active Extra-Depth Diabetic Shoes with 3 Pair Custom heat-molded multi-density innersoles . for 1 year . Dx: foot deformity with preulcerative skin lesions for . 12/07/2014 Not-Taking Imipramine HCl 10 MG 1 tablet at bedtime Orally Once a day Active Extra-Depth Diabetic Shoes with 3 Pair Custom heat-molded multi-density innersoles . for 1 year . Dx:NIDDM with neuropathy and painful 5th mtpj with pre-ulcerative lesion bilateral right more severe with offloading orth for . 11/27/2013 Not-Taking Immunizations Vaccine Route Administration Date Status Comme nts Influenza Unknown 12/08/2015 Administered Influenza Unknown 08/06/2017 Administered Influenza Unknown 07/01/2021 Administered Influenza Unknown 07/01/2023 Administered Social History Tobacco Use: Social History Observation Description Date Details (start date - stop date) Current Smoker NA - NA Tobacco Use/Smoking Question Answer Notes Are you a: current smoker When did you start smoking? 1979 How many cigarettes a day do you smoke? 08-20 Alcohol Screen Question Answer Notes Did you have a drink containing alcohol in the p ast year? No Points 0 Interpretation Negative Tobacco use other than smoking: Question Answer Notes Are you an other tobacco user? No Problems Problem Type SNOMED Code ICD Code Onset Dates Problem Status W/U Status Risk Notes Problem Polyneuropathy due to diabetes mellitus type I (353676057) Type 1 diabetes mellitus with diabetic polyneuropathy (E10.42) Active confirmed Problem Neurological disorder associated with type I diabetes mellitus (530909461) Type 1 diabetes mellitus with other diabetic neurological complication (E10.49) Active confirmed Problem Polyneuropathy due to type 2 diabetes mellitus (750581814) Type 2 diabetes mellitus with diabetic polyneuropathy (E11.42) Active confirmed Problem Localized, primary osteoarthritis of the ankle and/or foot (667762597) Primary osteoarthritis, right ankle and foot (M19.071) Active confirmed Problem Localized, primary osteoarthritis of the ankle and/or foot (191217548) Primary osteoarthritis, left ankle and foot (M19.072) Active confirmed Problem Acquired hammer toe of left foot (6247255032545571 ) Other hammer toe(s) (acquired), left foot (M20.42) Active confirmed Problem Acquired hammer toe of left foot (4862793871976116 ) Hammer toe of left foot (M20.42) Active confirmed Vital Signs Height 5ft6in in 09/02/2024 Weight 180 lbs 09/02/2024 BMI 29.05 kg/m2 09/02/2024 Encounters Encounter Location Date Provider Diagnosis [facility] [address] [place] [address] 05/13/2024 Cristina Garcia Type 2 diabetes mellitus with diabetic polyneuropathy E11.42 ; Tailor's bunion of right foot M21.621 ; Hypertrophy of bone of left foot M89.372 and Hammer toe of left foot M20.[address] [address] 09/02/2024 Cristina Radha Type 2 diabetes mellitus with diabetic polyneuropathy E11.42 ; Tailor's bunion of right foot M21.621 ; Hypertrophy of bone of left foot M89.372 and Hammer toe of left foot M20.[address] [address] 12/29/2024 Cristina Garcia Assessments Encounter Date Diagnosis (ICD Code) Assessment Notes Treatment Notes Treatment Clinical Notes Section Notes 05/13/2024 Type 2 diabetes mellitus with diabetic polyneuropathy (ICD-10 - E11.42) 05/13/2024 Tailor's bunion of right foot (ICD-10 - M21.621) 09/02/2024 Type 2 diabetes mellitus with diabetic polyneuropathy (ICD-10 - E11.42) 09/02/2024 Tailor's bunion of right foot (ICD-10 - M21.621) 09/02/2024 Hypertrophy of bone of left foot (ICD-10 - M89.372) 05/13/2024 Hypertrophy of bone of left foot (ICD-10 - M89.372) 05/13/2024 Hammer toe of left foot (ICD-10 - M20.42) 09/02/2024 Hammer toe of left foot (ICD-10 - M20.42) Plan Of Treatment Pending Test Test Name Order Date X ray : Foot, left 2V 11/27/2013 X ray : Foot, left 2V 10/04/2015 X ray : Foot, left 2V 12/26/2022 X ray : Foot, right 2V 12/26/2022 X ray : Foot, right 2V 11/27/2013 X ray : Foot, left 3V 01/16/2024 X ray : Foot, left 3V 08/10/2022 X ray : Foot, left 3V 12/20/2022 X ray : Foot, right 3V 12/20/2022 X ray : Foot, right 3V 06/14/2020 X ray : Foot, right 3V 08/10/2022 X ray : Foot, right 3V 01/16/2024 X ray : Foot, right 3V 07/24/2016 18285- Debride <25 sq cm 11/27/2013 09170-SHON SKIN LESIONS, OVER 4 03/18/20 15 18244-DOZR SKIN LESIONS, OVER 4 10/04/19 16 37601-KAYE SKIN LESIONS, OVER 4 02/17/20 16 28557-LWWH SKIN LESIONS, OVER 4 09/11/20 16 21825-SVCW SKIN LESIONS, OVER 4 05/22/20 16 08801-FJTL SKIN LESIONS, OVER 4 12/28/19 17 18195-ADJS SKIN LESIONS, OVER 4 06/07/20 17 88185-QNIR SKIN LESIONS, OVER 4 08/30/20 17 10685-SNUU SKIN LESIONS, OVER 4 11/30/19 18 25326-CXOE SKIN LESIONS, OVER 4 09/09/20 18 11975-QVWI SKIN LESIONS, OVER 4 11/05/19 20 62265-AALS SKIN LESIONS, OVER 4 06/14/20 20 34053-KPRF SKIN LESIONS, 2 TO 4 12/08/19 15 54292-LPCR SKIN LESIONS, 2 TO 4 02/12/20 14 05054-BKHC SKIN LESIONS, 2 TO 4 05/13/20 14 71824-SFZJ SKIN LESIONS, 2 TO 4 09/17/20 14 09739-TVUM NAIL(S) 09/17/2014 60192-MZMV NAIL(S) 05/13/2014 30640-MGOU NAIL(S) 02/11/2014 98838-XVQH NAIL(S) 12/07/2014 14099-HCLA NAIL(S) 03/18/2015 56933-AGFC NAIL(S) 02/17/2016 25923-OZHV NAIL(S) 10/04/2015 33153-ZROM NAIL(S) 11/29/2017 08433-OHZA NAIL(S) 08/30/2017 52572-RXYF NAIL(S) 06/07/2017 80215-OVWX NAIL(S) 12/27/2016 34893-XKJM NAIL(S) 05/22/2016 05850-HTFJ NAIL(S) 09/11/2016 Z9126-UCKYYHFN DYSTROPHIC NAILS ANY # C8570-HZWUOGEC DYSTROPHIC NAILS ANY # Insurance Providers Payer Name Payer Address Payer Phone Subscriber Number Group Number Insured Name Patient Relationship to Insured Coverage Start Date Coverage End Date [employer] Benefits [address] [address] [place] [address] [id number] Aubrie Young Self - patient is the insured Medical (General) History Medical History History ICD Code Measles High blood pressure type II diabetes Surgical History Surgery Date(Month/Year) breast biopsy 2013 resection of bone 4th right, total 5th m et head resection left 12/14/2022
--- OUTSIDE RECORDS SUMMARY | 2025-02-03 16:22 | XMS_ITS ---
Author Organization [facility] Address [address] [place] [address] Care Team Providers Care Tunnel Kiln Firer Name Role Phone Pavel Robles MD Primary Care Provider Cristina Boone [phone] REASON FOR VISIT CX appt Encounters Encounter Location Date Provider Diagnosis [facility] [address] [place] [address] 12/29/2024 Cristina Garcia Plan Of Treatment No Information Progress Notes * Aubrie ESCOBEDO ADOB:1969 (54 yo F)Acc No.[id number]:12/29/2024 Patient:?Aubrie ESCOBEDO :1970???Age:54 Y???Sex:Female Address:[address] [place] [id number] * true * Date:? Generated for Marvini yessy/Patricia/eTransmitting on:?02/03/2025 04:22 PM EDT
--- OUTSIDE RECORDS SUMMARY | 2025-02-03 16:22 | XMS_ITS ---
Author Organization [facility] Address [address] [place] [address] Care Team Providers Care Humanities Instructor Name Role Phone Pavel Robles MD Primary Care Provider Cristina Boone Unavailable [phone] Allergies Allergen (clinical drug ingredient) Drug/Non Drug Allergy documented on EMR Reaction Allergy Type Onset Date Status ciprofloxacin Cipro rash Drug Allergy Act elly Iodine rash/blisters Drug Allergy Act elly Levaquin rash Drug Allergy Active shrimp allergenic extract Shrimp (Diagnostic) hives Drug Allergy Active Shellfish (FN) Shellfish-derived Products Hives Drug Allergy Active REASON FOR VISIT At Risk Footcare Medications Medication SIG (Take, Route, Frequency, Duration) Notes Start Date End Date Status Ecotrin Low Strength 81 MG 1 tablet Orally Once a day Active Lisinopril 20 MG 1 tablet Orally Once a day Active Lantus 100 UNIT/ML Subcutaneous Active Vitamin D-3 5000 UNIT Orally Active Custom Orthotics as directed N ot-Taking metFORMIN HCl 500 MG 1 tablet with meals Orally Twice a day Active Simvastatin 20 MG 1 tablet in the even ing Orally Once a day Active Glimepiride 4 MG 1 tablet with breakf ast or the first main meal of the day Orally Once a day Active Metoprolol Tartrate 100 MG 1 tablet Orally Once a day Active Januvia 100 MG 1 tablet Orally Once a day Active HumaLOG Active Extra-Depth Diabetic Shoes with 3 Pair [...] with offloading orth for . 11/27/2013 Not-Taking Social History Tobacco Use: Social History Observation Description Date Details (start date - stop date) Current Smoker NA - NA Tobacco Use/Smoking Question Answer Notes Are you a: current smoker When did you start smoking? 1980 How many cigarettes a day do you smoke? 11-20 Tobacco use other than smoking: Question Answer Notes Are you an other tobacco user? No Vital Signs Height 5ft6in in 09/02/2024 Weight 180 lbs 09/02/2024 BMI 29.05 kg/m2 09/02/2024 Encounters Encounter Location Date Provider Diagnosis [facility] [place] [address] [place] [address] 09/02/2024 Cristina Radha Type 2 diabetes mellitus with diabetic polyneuropathy E11.42 ; Tailor's bunion of right foot M21.621 ; Hypertrophy of bone of left foot M89.372 and Hammer toe of left foot M20.42 Assessments Encounter Date Diagnosis (ICD Code) Assessment Notes Treatment Notes Treatment Clinical Notes Section Notes 09/02/2024 Type 2 diabetes mellitus with diabetic polyneuropathy (ICD-10 - E11.42) 09/02/2024 Tailor's bunion of right foot (ICD-10 - M21.621) 09/02/2024 Hypertrophy of bone of left foot (ICD-10 - M89.372) 09/02/2024 Hammer toe of left foot (ICD-10 - M20.42) Plan Of Treatment Next Appt Details Follow Up: 4 Months, Reason: Procedure Notes * Category Sub-Category Detail Notes Keratoma Treatment Parring or Cutting o f Benign Hyperkeratotic Lesion(s) (-56) 2-4 Lesions - The Benign hyperkeratotic lesions, ( 2 ) in total, locations as stated and described in exam, were pared, and/or cut utilizing a sterile 15 blade, tissue nippers, and/or power [employer] instrumentation - 60562 Nail Reduction Nail Reduction (-27) Trimming o f all dystrophic nails, locations as stated and described in exam, was performed to reduce/remove overall nail length and girth, by manual and electrical means with use of a nail nipper and/or dremel, to more viable healthy nail plate or bed tissue - G0127 Progress Notes * Aubrie ESCOBEDO ADOB:1969 (54 yo F)Acc No.[id number]:09/02/2024 Progress Note Patient:?Aubrie ESCOBEDO Provider:?Cristina Garcia DPM :1970???Age:54 Y???Sex:Female D ate:09/02/2024 Address:[address] [place], [place] [id number] Pcp:Pavel Robles MD Subjective: * Chief Complaints: * ???At Risk Footcare * HPI: ???At Risk footcare:?Pt States Last PCP Visit:?Date?11/30/2023 ???Toe pain:?Nature:?burning, callus?.?Location:?4th toe, Left foot.?Duration:?several years.?Onset/Cause:?gradual-pt had prior toe surgery on left 4the toe.?Course:?improved.?Aggravated by:?standing/walking.?Treatments:?offloading, padding, debridment, DM shoes, custom OT.?Foot Pain:?Location:?Bottom, Outside, Forefoot, , RIGHT.?Duration:?several months.?Onset:?gradual.?Course:?improved.?Aggravated:?especially toward the end of the day.?Treatments:?change in shoes, innersoles, DM inserts, custom OT.? * ROS:?General/Constitutional:?Nausea?denies.?Vomiting?denies.?Hunger Thirst?denies.?Loss appetite?denies.?Chills?denies.?Fatigue?denies.?Fever?denies.?Night Sweats?denies.?Unexplained weight loss?denies.?Ophthalmologic:?Blurred vision?denies.?Red eye?denies.?HEENTM:?Dentures?denies.?Dizziness?denies.?Glasses/contacts?admits.?Retinopathy?den ies.?Blurred/double vision?denies.?TMJ?denies.?Discharge/drainage?denies.?Implants?denies.?Hard of hearing denies.?Difficulty chewing/swallowing/speaking?denies.?Nose bleeds?denies.?Sore mouth?denies.?Swollen glands?denies.?Respiratory:?On O xygen?denies.?Pneumonia/pleurisy?denies.?Bronchitis?denies.?Emphysema?denies.?Co ughing?denies.?Cough blood?denies.?Shortness of breath?denies.?Wheezing?denies.?Cardiovascular:?Pacemaker?denies.?MVP?denies.?WPW?denies.?CHF?denies.?Heart attack?denies.?Septal defect?denies.?Rapid beat?denies.?Chest pain ?denies.?Atrial Fib.?denies.?Murmur/Palpitations?denies.?Gastrointestinal:?Hemorrhoids?denies.?Stomach/Abdominal pain?denies.?Dark blood stool?denies.?Irritable bowel ?denies.?Constipation?denies.?Diarrhea?denies.?Vomiting?denies.?Hematology:?Swelling?denies.?Bruising?denies.?Bleeding problem?denies.?Genitourinary:?Blood urine?denies.?Frequent/Painfu/urination/bladder control?denies.?Kidney stones?denies.?Infection (UTI)?denies.?Nephropathy?denies.?Musculoskeletal:?Hammertoes?denies.?Bunions?denies.?Scoliosis/kyphosis?denies.?Muscle cramps / walking?denies.?Generalized aches and pains?denies.?Weakness?denies.?Integ.:?Iraheta?denies.?Scars?denies.?Corns/calluses?denies.?Ingrown nails?denies.?Painful nails?denies.?Rashes?denies.?Neurologic:?Difficulty sleeping?denies.?Bipolar?denies.?Brain disorder?denies.?Balance t rouble?denies.?Confusion?denies.?Fainting/blackouts?denies.?Headache?denies.?Mick mors?denies.? * Medical History:? * Surgical History:?breast bio psy 2013resection of bone 4th right, total 5th met head resection left 12/14/2022 * Hospitalization/Major Diagno stic Procedure:?Denies Past Hospitalization * Family History:?Mother: dece ased, diagnosed with Other malignant neoplasm of unspecified site, Diabetic - NIDDM, Unspecified essential hypertension, Unspecified cerebral artery occlusion with cerebral infarction.?Father: .? * Social History:?Tobacco Use:?Tobacco Use/Smoking?Are you a:?current smoker ?When did you start smoking??1979 ?How many cigarettes a day do you smoke??11-20 ?Tobacco use other than smoking?Are you an other tobacco user??No * Medications:?TakingHumaLOG I mipramine HCl 10 MG Tablet 1 tablet at bedtime Orally Once a day Januvia 100 MG Tablet 1 tablet Orally Once a day Simvastatin 20 MG Tablet 1 tablet in the evening Orally Once a day metFORMIN HCl 500 MG Tablet 1 tablet with meals Orally Twice a day Metoprolol Tartrate 100 MG Tablet 1 tablet Orally Once a day Glimepiride 4 MG Tablet 1 tablet with breakfast or the first main meal of the day Orally Once a day Lisinopril 20 MG Tablet 1 tablet Orally Once a day Ecotrin Low Strength 81 MG Tablet Delayed Release 1 tablet Orally Once a day Vitamin D-3 5000 UNIT Tablet Orally Lantus 100 UNIT/ML Solution Subcutaneous Taking HumaLOG Taking Imipramine HCl 10 MG Tablet 1 tablet at bedtime Orally Once a day Taking Januvia 100 MG Tablet 1 tablet Orally Once a day Taking Simvastatin 20 MG Tablet 1 tablet in the evening Orally Once a day Taking metFORMIN HCl 500 MG Tablet 1 tablet with meals Orally Twice a day Taking Metoprolol Tartrate 100 MG Tablet 1 tablet Orally Once a day Taking Glimepiride 4 MG Tablet 1 tablet with breakfast or the first main meal of the day Orally Once a day Taking Lisinopril 20 MG Tablet 1 tablet Orally Once a day Taking Ecotrin Low Strength 81 MG Tablet Delayed Release 1 tablet Orally Once a day Taking Vitamin D-3 5000 UNIT Tablet Orally Taking Lantus 100 UNIT/ML Solution Subcutaneous Not-Taking/PRNCustom Orthotics as directed Extra-Depth Diabetic Shoes with 3 Pair Custom heat-molded multi-density innersoles . . for 1 year . Dx:NIDDM with neuropathy and painful 5th mtpj with pre-ulcerative lesion bilateral right more severe with offloading orth Extra-Depth Diabetic Shoes with 3 Pair Custom heat- molded multi-density innersoles . . for 1 year . Dx: foot deformity with preulcerative skin lesions Medication List reviewed and reconciled with the patientNot-Taking/PRN Custom Orthotics as directed Not-Taking/PRN Extra-Depth Diabetic Shoes with 3 Pair Custom heat-molded multi-density innersoles . . for 1 year . Dx:NIDDM with neuropathy and painful 5th mtpj with pre-ulcerative lesion bilateral right more severe with offloading orth Not-Taking/PRN Extra-Depth Diabetic Shoes with 3 Pair Custom heat-molded multi-density innersoles . . for 1 year . Dx: foot deformity with preulcerative skin lesions Medication List reviewed and reconciled with the patient * Allergies:?Cipro: rashLevaqu in: rashIodine: rash/blistersShrimp (Diagnostic): hivesShellfish-derived Products: Hivesyes[Allergies Verified] Objective: * Vitals:?Ht: 5ft6in, Wt:180, BMI:29.05, Shoe size: 7.5, BS: 62, Ht-cm: 167.64 cm, Wt-k.65 kg. * ???Past Orders: ???Lab:HEMOGLOBIN A1C (GLYCO HEMOGLOBIN) (Order Date - 01/16/2024) (Collection Date & Time - 11/01/2023) ? Value Reference Range ?HEMOGLOBIN A1C (HH) 6.9 * Examination: ???Ophthalmology Referral: ?DIABETES EYE EXAM?Procedure Performed:?Yes ?Date of Exam Performed?06/01/2024 ?Findings of Diabetic Eye Exam:?no retinopathy?Neurological: ?SENSORY:?Neurological exam demonstrates reduced sharp/dull pin prick discrimination reduced light touch sensation reduced vibration sensation reduced proprioception sensation in a stocking fashion 5.07 monofilament test performed at plantar aspects of 5 varied sites per foot shows sensation plantar aspects absent at Forefoot B/L.?Dermatologic: ?SKIN FINDINGS:?Skin exam reveals Keratotic lesion(s) located at , SUB MTH (s) , 5 , Right Medial plantar T5.?Vascular: ?DP PULSES (B):?3/4, B/L.?PT PULSES (B):?3/4, B/L.?CAPILLARY FILL TIME:?immediate, all digits, B/L.?TROPHIC CONDITION-TEXTURE/ELASTICITY/TURGOR/HAIR GROWTH (B):?normal, B/L.?TEMPERTURE GRADIENT (C):?normal, warm to cool, proximal to distal, B/L, B/L.?PIGMENTATION:?normal, B/L.?EDEMA (C):?absent, B/L.?Orthopedic: ?MUSCLE STRENGTH:?5/5 all groups in a symmetrical fashion, B/L , 5/5 all groups in a symmetrical fashion , B/L.?FOOT MORPHOLOGY:? Pes Planus structure, B/L.?JUSTYNA'S BUNION:?Prominent, painful, inflammed 5th MTH/MPJ, Right.?DIGITAL DEFORMITIES:?Amputation distal digits 4 B/L, pain on palpation to distal remaining digit 4th Left.?Nails: ?NAILS are:?1-5 B/L, Elongated, overgrown, dystrophic.?General Examination: ?FOOT EXAM:?Lower Extremity Neurological Exam performed:?Yes ?Visual exam of foot performed:?Yes ?Date?09/02/2024 ?Footwear Evaluation?Footwear Evaluation performed:?Yes??? Assessment: * Assessment: 1.?Type 2 diabetes mellitus with diabetic polyneuropathy - E11.42???2.?Tailor's bunion of right foot - M21.621 (Primary)???3.?Hypertrophy of bone of left foot - M89.372???4.?Hammer toe of left foot - M20.42??? Plan: * Treatment: * Procedures:?Keratoma Treatment:?Parring or Cutting of Benign Hyperkeratotic Lesion(s)?(-56) 2-4 Lesions - The Benign hyperkeratotic lesions, ( 2 ) in total, locations as stated and described in exam, were pared, and/or cut utilizing a sterile 15 blade, tissue nippers, and/or power dremel instrumentation - 72668.?Nail Reduction:?Nail Reduction?(-27) Trimming of all dystrophic nails, locations as stated and described in exam, was performed to reduce/remove overall nail length and girth, by manual and electrical means with use of a nail nipper and/or dremel, to more viable healthy nail plate or bed tissue - G0127.? * Procedure Codes:?96958 TRIM SKIN LESIONS, 2 TO 4, Modifiers: XS G0127 TRIMMING DYSTROPHIC NAILS ANY #, Modifiers: XS * Preventive Medicine:? ??Counseling:?Tobacco use:?Type of Tobacco Use Cessation Counseling provided?Smoking effects education ?Patient counseled on the dangers of smoking and urged to quit:?09/02/2024 ?Discussion:?-12: Office or other outpatient visit for the evaluation and management of an established patient, which required a medically appropriate history and/or examination and STRAIGHTFORWARD level of MEDICAL DECISION MAKING, 1 SELF-LIMITED OR MINOR PROBLEM, MINIMAL- NO AMOUNT/COMPLEXITY OF DATA TO BE REVIEWED/ANALYZED, AND MINIMAL RISK OF COMPLICATION/MORBIDITY. The visit on the day of the encounter encompassed interpreting the data and educating the patient as to the nature of their condition, treatment options available according to their individual PMH, meds, allergies, and overall health/living conditions, as well as any potential risks or complications that may occur from a failure to adhere to, and participate in, the recommended course of therapy. The discussion included a complete verbal, and/or written explanation of the examination results, any x-rays taken, the proposed diagnosis, and outline of the treatment plan. A schedule for future care needs was also explained. The patient verbalized an understanding of the instructions at this time and agreed to be an active participant in their treatment. If the patient should think of any questions or concerns after the visit, I have encouraged the patient to call the office, Patients podiatric issue has improved with custom OT, pt wants to hold off on surgery at this time, Given recent successful results to treatment, The patient wishes to continue with the present treatment plan for their condition.?Podiatric Surgery Counseling:?Surgical procedures to treat the patients foot problem were discussed. Pt states she is not ready yet for surgery at this time.? ??Screening/Special Tests:?Fall Risk?Assessment:?Performed ?Screening:?No falls in the past year ?FALLS: Screening for Future Fall Risk?Have you had two or more falls in the past year??No ?Have you had any falls with injury in the past year??No * Follow Up:?4 Months * Images: * Sign off status: Completed true * Provider:?Cristina Garcia, DPM Date:?11/2023 Generated for Nigel krishnamurthy/Patricia/Candice on:?02/03/2025 04:22 PM EDT History and Physical Notes * HPI (History of Present Illness) Category Sub-Category Detail Notes Category Not es Toe pain Nature: burning, callus Location: 4th toe, Left foot Duration: several years Onset/Cause: gradual-pt had prior toe surgery on left 4the toe Course: improved Aggravated by: standing/walking Treatments: offloading, padding, debridment, DM shoes, custom OT At Risk footcare Pt States Last PCP Visit: Date: 4 Foot Pain Location: Bottom, Outside, Forefoot, , RIGHT Duration: several months Onset: gradual Course: improved Aggravated: especially toward th e end of the day Treatments: change in shoes, inn ersoles, DM inserts, custom OT Examination Category Sub-Category Detail Notes Category Not es Neurological SENSORY: Neurological exa m demonstrates reduced sharp/dull pin prick discrimination reduced light touch sensation reduced vibration sensation reduced proprioception sensation in a stocking fashion 5.07 monofilament test performed at plantar aspects of 5 varied sites per foot shows sensation plantar aspects absent at Forefoot B/L Dermatologic SKIN FINDINGS: Skin exam reveal s Keratotic lesion(s) located at , SUB MTH (s) , 5 , Right Medial plantar T5 Orthopedic FOOT MORPHOLOGY: Pes Planus structure, B/ L DIGITAL DEFORMITIES: Amputation distal d igits 4 B/L, pain on palpation to distal remaining digit 4th Left TAILOR'S BUNION: Prominent, painful, inflammed 5th MTH/MPJ, Right MUSCLE STRENGTH: 5/5 all groups in a symmetrical fashion, B/L , 5/5 all groups in a symmetrical fashion , B/L General Examination FOOT EXAM: Lower Extrem ity Neurological Exam performed:: Yes Visual exam of foot performed:: Yes Date: 09/02/2024 Footwear Evaluation Footwear Evaluation performe d:: Yes Ophthalmology Referral DIABETES EYE EXAM Procedure Perform ed:: Yes ?Date of Exam Performed: 06/01/2024 Findings of Diabetic Eye Exam:: no retin opathy Vascular DP PULSES (B): 3/4, B/L PT PULSES (B): 3/4, B/L CAPILLARY FILL TIME: immediate, all digi ts, B/L TEMPERTURE GRADIENT (C): normal, warm to cool, proximal to distal, B/L, B/L TROPHIC CONDITION-TEXTURE/ELASTICITY/TURGOR/HAIR GROWTH (B): normal, B/L EDEMA (C): absent, B/L PIGMENTATION: normal, B/L Nails NAILS are: 1-5 B/L, Elongated, overgrow n, dystrophic
== END 2025-02-03 15:13 | disposition home or self-care (01) ==
LOC: HO.MAMMO 15:12
PROVIDERS: PCP Internal Medicine; Visit Provider Internal Medicine
DX: Z12.31 Encounter for screening mammogram for malignant neoplasm of breast (principal)
CPT/HCPCS: 77063; 77067

== ENCOUNTER → 2025-02-03 15:30 | Outpatient (BNV) | payer OTHER, SELFPAY | PROVIDERS: PCP Internal Medicine; Visit Provider Internal Medicine | DX: Z12.31 Encounter for screening mammogram for malignant neoplasm of breast (principal) | CPT/HCPCS: 77063; 77067 ==

== ENCOUNTER 2025-03-09 07:16 | Outpatient (REF) | payer OTHER, SELFPAY ==
--- OUTSIDE RECORDS SUMMARY | 2025-03-09 07:19 | XMS_ITS | Patient Health Record ---
[facility] Address [address] [place] [address] Care Team Providers Care Manager Performance Improvement Name Role Phone Pavel Robles MD Primary Care Provider Cristina Boone Unavailable [phone] Allergies Allergen (clinical drug ingredient) Drug/Non Drug [...] Polyneuropathy due to diabetes mellitus type I (754491788) Type 1 diabetes mellitus with diabetic polyneuropathy (E10.42) Active confirmed Problem Neurological disorder associated with type I diabetes mellitus (020729036) Type 1 diabetes mellitus with other diabetic neurological complication (E10.49) Active confirmed Problem Polyneuropathy due to type 2 diabetes mellitus (686019952) Type 2 diabetes mellitus with diabetic polyneuropathy (E11.42) Active confirmed Problem Localized, primary osteoarthritis of the ankle and/or foot (132342736) Primary osteoarthritis, right ankle and foot (M19.071) Active confirmed Problem Localized, primary osteoarthritis of the ankle and/or foot (693689724) Primary osteoarthritis, left ankle and foot (M19.072) Active confirmed Problem Acquired hammer toe of left foot (3949114279863344 ) Other hammer toe(s) (acquired), left foot (M20.42) Active confirmed Problem Acquired hammer toe of left foot (6761768190176437 ) Hammer toe of left foot (M20.42) Active confirmed Vital Signs Height 5ft6in in 09/02/2024 Weight 180 lbs 09/02/2024 BMI 29.05 kg/m2 09/02/2024 Encounters Encounter Location Date Provider Diagnosis [facility] [place] [address] [place] [address] 05/13/2024 Cristina Garcia Type 2 diabetes mellitus with diabetic polyneuropathy E11.42 ; Tailor's bunion of right foot M21.621 ; Hypertrophy of bone of left foot M89.372 and Hammer toe of left foot M20.[address] [address] 09/02/2024 Cristina Radha Type 2 diabetes mellitus with diabetic polyneuropathy E11.42 ; Tailor's bunion of right foot M21.621 ; Hypertrophy of bone of left foot M89.372 and Hammer toe of left foot M20.[address] [address] 12/29/2024 Cristina Garcia Assessments Encounter Date Diagnosis [...] X ray : Foot, right 3V 07/24/2016 68536- Debride <25 sq cm 11/27/2013 23647-FTUR SKIN LESIONS, OVER 4 03/18/20 15 96807-VYYY SKIN LESIONS, OVER 4 10/04/19 16 19062-PKJW SKIN LESIONS, OVER 4 02/17/20 16 77540-RWFH SKIN LESIONS, OVER 4 09/11/20 16 09933-AUQR SKIN LESIONS, OVER 4 05/22/20 16 34769-LTCQ SKIN LESIONS, OVER 4 12/28/19 17 75821-MVOE SKIN LESIONS, OVER 4 06/07/20 17 59672-UGFW SKIN LESIONS, OVER 4 08/30/20 17 54751-INHT SKIN LESIONS, OVER 4 11/30/19 18 24809-LBPU SKIN LESIONS, OVER 4 09/09/20 18 82919-BFCK SKIN LESIONS, OVER 4 11/05/19 20 12627-XIAP SKIN LESIONS, OVER 4 06/14/20 20 12734-DGRS SKIN LESIONS, 2 TO 4 12/08/19 15 68520-CJCF SKIN LESIONS, 2 TO 4 02/12/20 14 84301-ASCD SKIN LESIONS, 2 TO 4 05/13/20 14 48474-MTYI SKIN LESIONS, 2 TO 4 09/17/20 14 64140-KNUZ NAIL(S) 09/17/2014 93548-OCGW NAIL(S) 05/13/2014 27161-RDOC NAIL(S) 02/11/2014 06047-BOCM NAIL(S) 12/07/2014 15965-YQNU NAIL(S) 03/18/2015 79884-SPTP NAIL(S) 02/17/2016 14688-JEHT NAIL(S) 10/04/2015 57763-RMHB NAIL(S) 11/29/2017 61892-QWMM NAIL(S) 08/30/2017 41920-OCVS NAIL(S) 06/07/2017 73739-YPWP NAIL(S) 12/27/2016 58582-RCSS NAIL(S) 05/22/2016 56402-VWLT NAIL(S) 09/11/2016 G2704-OMYBULSU DYSTROPHIC NAILS ANY # Y2250-UNXHZHPT DYSTROPHIC NAILS ANY # Insurance Providers Payer Name Payer Address Payer Phone Subscriber Number Group Number Insured Name Patient Relationship to Insured Coverage Start Date Coverage End Date [employer] Benefits [address] [address] [place] [address] [id number] Aubrie Young Self - patient is the insured Medical (General) History Medical History History ICD Code Measles High blood pressure type II diabetes Surgical History Surgery Date(Month/Year) breast biopsy 2013 resection of bone 4th right, total 5th m et head resection left 12/14/2022
[2025-03-09 08:14] LABS: Estimated Average Glucose 154 mg/dL
[2025-03-09 08:39] LABS: Cholesterol 160 mg/dL (<200); HDL Cholesterol 40 mg/dL (>40); LDL Cholesterol Calculated 94 mg/dL (<100); Triglycerides 131 mg/dL (<150)
[2025-03-09 08:46] LABS: Creatinine Urine 25.91 mg/dL; Microalbumin Urine < 5.0 mg/L
== END 2025-03-09 07:17 | disposition home or self-care (01) ==
LOC: HO.LAB 07:16
PROVIDERS: PCP Internal Medicine; Visit Provider Internal Medicine
DX: E11.9 Type 2 diabetes mellitus without complications (principal); E78.5 Hyperlipidemia, unspecified; I10 Essential (primary) hypertension
CPT/HCPCS: 36415; 80061; 82570; 83036

== ENCOUNTER 2025-09-14 13:52 | Outpatient (AMB) | payer OTHER, SELFPAY ==
--- OUTSIDE RECORDS SUMMARY | 2024-12-30 11:00 | XMS_ITS ---
Author Organization [facility] Address [address] [place] [id number] Care Team Providers Care Command And Control Specialist Name Role Phone Margaret CACERES, Pavel Primary Care Provider Cristina Boone [phone] Encounters Encounter Location Date Provider Diagnosis [address] [address] 12/30/2024 Cristina Garcia Plan Of Treatment No Information Progress Notes * Aubrie ESCOBEDO ADOB:1969 (55 yo F)Acc No.[id number]:12/30/2024 Progress Note Patient: Aubrie HOUSER Provider: Rian Garcia DPM :1970 A ge:54 Y S ex:Female Date:12/30/2024 Address:[address] [place], [place] [id number] Pcp:Pavel Robles MD Subjective: * Chief Complaints: * * Medical History: Objective: * Vitals: Assessment: Plan: * Treatment: * Images: * The named appointment provid er may or may not be the originator of this progress note, and it is not deemed complete until electronically signed by the appointment provider. Sign off status: Pending * Provider: Rian Garcia DPM Date: 0 12/30/2024 Generated for Printi ng/Faxing/eTransmitting on: 1 11/15/2024 08:04 PM EST
[2025-09-14 13:57] VITALS: BMI 29.0
--- NOTE | 2025-09-14 13:57 | A.OFFVIS_ITS ---
Vital Signs 09/14/25 13:57 Height 5 ft 6 in Weight 180 lb BMI 29.0 Intake Visit Reasons: New Pt - Left Middle Trigger Finger Intake Note: Aubrie is a 55 year old female who presents today as a New Patient with complaints of Left Middle Finger Locking and Catching. [facility] Ryan reports that this has been going on for years now and she has had no previous treatment Allergies ciprofloxacin (From Cipro) Allergy (Mild, Verified 12/08/22 11:52) RASH Iodinated Contrast Media (IV Dye, Iodine Containing) Allergy (Mild, Verified 12/08/22 11:52) TACHYCARDIA, RASH iodine Allergy (Mild, Verified 12/08/22 11:52) Rash povidone-iodine (From Betadine) Allergy (Mild, Verified 12/08/22 11:52) RASH soap (From Betadine) Allergy (Mild, Verified 12/08/22 11:52) Rash bee pollen (BEE STINGS) Allergy (Unknown, Verified 12/08/22 11:52) ANAPHYLAXIS dulaglutide (Trulicity) Allergy (Unknown, Verified 12/08/22 11:52) Rash Shellfish Allergy (Mild, Uncoded 12/08/22 11:52) RASH HPI Comments Details: Interval History The patient is a 55-year-old female presenting with a new patient evaluation for left middle trigger finger. She reports that the left middle finger is actively clicking and causing pain, similar to previous episodes with other fingers that required surgical intervention. She has had two or three fingers fixed previously, indicating a recurrent issue with trigger fingers. The patient has a family history of Dupuytren's contracture, as her mother was affected, and she notes a cord-like structure in the affected finger. She is a diabetic smoker, which may impact healing and management of her condition. [facility] Medical History (Updated 09/14/25 @ 14:27 by Ez Paredes MD) On beta conrado at home HTN (hypertension) Hyperlipidemia Diabetes Surgical History History of hand surgery Hx of breast surgery History of elbow surgery Hx of hammer toe correction Social History (System 10/24/21 @ 07:13 by Kamryn Parry) Are you a primary long term acute care registered nurse to a significant other at home: No Do you presently have visiting nurse or other home services: No Alcohol intake: never Patient Tobacco Use Status: Current everyday Tobacco user Tobacco use type: Smokeless Tobacco Cigarettes Per Day: 4 Years Smoked: 30 Advance Directives Date on File: 10/29/20 Current occupational status: employed 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 Reproducible triggering present Vital Signs: BMI result Body Mass Index 29.0 Assessment & Plan Assessment & Plan (1) Trigger finger, left middle finger: Code(s): M65.332 - Trigger finger, left middle finger Category: Medical Plan Plan 1. Left Middle Trigger Finger The plan is to proceed with surgical intervention for the left middle trigger finger, similar to previous procedures done on other fingers. The patient expressed a preference for scheduling the surgery after the holiday season, specifically in the first week of October. 2. Diabetes Mellitus The patient should be advised on the importance of managing her diabetes to optimize surgical outcomes and healing. 3. Smoking Habit Counseling on smoking cessation is recommended to improve surgical outcomes and overall health. Discussion Notes The patient and clinician discussed the active clicking and pain in the left middle finger, which is similar to previous trigger finger issues she has experi enced. The clinician explained the surgical procedure that would be similar to those performed on her other fingers, and the patient agreed to proceed with surgery after the season. The patient was informed about the potential impact of her diabetes and smoking on healing and was advised to manage these conditions to improve surgical outcomes. Coding Level of Care Code Est Pt Level 4 (49373) Diagnoses Trigger finger, left middle finger M65.332
--- OUTSIDE RECORDS SUMMARY | 2025-09-14 20:05 | XMS_ITS | Patient Health Record ---
[facility] Address [address] [place] [address] Care Team Providers [employer] Name Role Phone Pavel Robles MD Primary Care Provider Cristina Boone Unavailable [phone] Allergies Allergen (clinical drug ingredient) Drug/Non Drug [...] . Dx: foot deformity with preulcerative skin lesions; Duration: . 12/07/2014 Not-Taking Imipramine HCl 10 MG 1 tablet at bedtime Orally Once a day Active Extra-Depth Diabetic Shoes with 3 Pair Custom heat-molded multi-density innersoles . for 1 year . Dx:NIDDM with neuropathy and painful 5th mtpj with pre-ulcerative lesion bilateral right more severe with offloading orth; Duration: . 11/27/2013 Not-Taking Immunizations Vaccine Route Administration [...] Polyneuropathy due to diabetes mellitus type I (059908114) Type 1 diabetes mellitus with diabetic polyneuropathy (E10.42) Active confirmed Problem Neurological disorder associated with type I diabetes mellitus (581718487) Type 1 diabetes mellitus with other diabetic neurological complication (E10.49) Active confirmed Problem Polyneuropathy due to type 2 diabetes mellitus (404540176) Type 2 diabetes mellitus with diabetic polyneuropathy (E11.42) Active confirmed Problem Localized, primary osteoarthritis of the ankle and/or foot (561851930) Primary osteoarthritis, right ankle and foot (M19.071) Active confirmed Problem Localized, primary osteoarthritis of the ankle and/or foot (712302986) Primary osteoarthritis, left ankle and foot (M19.072) Active confirmed Problem Acquired hammer toe of left foot (6446114843629745 ) Other hammer toe(s) (acquired), left foot (M20.42) Active confirmed Problem Acquired hammer toe of left foot (0257038242274367 ) Hammer toe of left foot (M20.42) Active confirmed Encounters Encounter Location Date Provider Diagnosis [facility] [address] [place] [address] 12/29/2024 Cristina Garcia Plan Of Treatment Pending Test Test Name [...] X ray : Foot, right 3V 07/24/2016 55925- Debride <25 sq cm 11/27/2013 92956-DIFO SKIN LESIONS, OVER 4 03/18/20 15 80842-QHSA SKIN LESIONS, OVER 4 10/04/19 16 54488-DYHR SKIN LESIONS, OVER 4 02/17/20 16 43417-YXFB SKIN LESIONS, OVER 4 09/11/20 16 05294-ZJOW SKIN LESIONS, OVER 4 05/22/20 16 69908-SHTK SKIN LESIONS, OVER 4 12/28/19 17 15029-XKOF SKIN LESIONS, OVER 4 06/07/20 17 16019-EPLE SKIN LESIONS, OVER 4 08/30/20 17 38921-GXZG SKIN LESIONS, OVER 4 11/30/19 18 10292-TEUO SKIN LESIONS, OVER 4 09/09/20 18 83081-VRJX SKIN LESIONS, OVER 4 11/05/19 20 80749-EGJZ SKIN LESIONS, OVER 4 06/14/20 20 54649-AOGJ SKIN LESIONS, 2 TO 4 12/08/19 15 93585-YUCI SKIN LESIONS, 2 TO 4 02/12/20 14 80212-QTLF SKIN LESIONS, 2 TO 4 05/13/20 14 71533-IJGZ SKIN LESIONS, 2 TO 4 09/17/20 14 31840-TKPV NAIL(S) 09/17/2014 05085-FOBI NAIL(S) 05/13/2014 93675-IRUQ NAIL(S) 02/11/2014 63602-IVAL NAIL(S) 12/07/2014 68791-OBRC NAIL(S) 03/18/2015 03627-UHDR NAIL(S) 02/17/2016 05261-TXGP NAIL(S) 10/04/2015 67390-AKMB NAIL(S) 11/29/2017 36483-JGJF NAIL(S) 08/30/2017 13890-FCVL NAIL(S) 06/07/2017 64474-MXNK NAIL(S) 12/27/2016 03896-NJLP NAIL(S) 05/22/2016 15687-ONKV NAIL(S) 09/11/2016 M4672-DWLRAHHC DYSTROPHIC NAILS ANY # A4050-SCRNEUHX DYSTROPHIC NAILS ANY # Insurance Providers Payer Name Payer Address Payer Phone Subscriber Number Group Number Insured Name Patient Relationship to Insured Coverage Start Date Coverage End Date [employer] Benefits [address] [address] [place] [address] [id number] Aubrie Young Self - patient is the insured Medical (General) History Medical History History ICD Code Measles High blood pressure type II diabetes Surgical History Surgery Date(Month/Year) breast biopsy 2012 resection of bone 4th right, total 5th m et head resection left 12/14/2022
== END 2025-09-14 14:09 | disposition home or self-care (01) ==
LOC: HO.HOS 13:53
PROVIDERS: PCP Internal Medicine; Visit Provider Orthopaedic Surgery
DX: M65.332 Trigger finger, left middle finger (principal)
CPT/HCPCS: 99214